=== PATIENT | female | born 1960 | race Caucasian/White ===

== ENCOUNTER 2021-10-14 21:54 | Emergency (ER) | payer OTHER ==
[2021-10-14] MEDS ORDERED: Lidocaine 1%/Epinephrine 1:100K 10 ML VIAL ONE (22:13)
[2021-10-14] MEDS ORDERED: Bacitracin 1 PK ONE (22:19)
== END 2021-10-14 23:03 | disposition home or self-care (01) ==
LOC: MADERS 21:54
DX: S81.812A Laceration without foreign body, left lower leg, initial encounter (principal); E03.9 Hypothyroidism, unspecified; W26.8XXA Contact with other sharp object(s), not elsewhere classified, initial encounter; Z79.899 Other long term (current) drug therapy
CPT/HCPCS: 12002